=== PATIENT | female | born 1995 | race Caucasian/White ===

== ENCOUNTER 2021-03-14 18:57 | Emergency (ER) | payer BC, OTHER ==
[2021-03-14] MEDS ORDERED: Lidocaine 1% w/Epinephrine 1:100K 20 ML VIAL ONE (20:08)
[2021-03-14] MEDS ORDERED: HYDROcodone/Acetaminophen 5/325 mg Tablet ONE (21:14)
== END 2021-03-14 22:30 | disposition home or self-care (01) ==
LOC: CSHERS 18:57
DX: S01.01XA Laceration without foreign body of scalp, initial encounter (principal); S63.502A Unspecified sprain of left wrist, initial encounter; V89.2XXA Person injured in unspecified motor-vehicle accident, traffic, initial encounter